=== PATIENT | male | born 1985 | race Hispanic/Latino ===

== ENCOUNTER 2016-09-15 08:18 | Emergency (ER) | payer OTHER ==
[2016-09-15 08:20] VITALS: BP 143/80; PULSE 89; TEMP 98; O2SAT 98
[2016-09-15 08:21] VITALS: BMI 25.0
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
== END 2016-09-15 09:40 | disposition home or self-care (01) ==
LOC: H.ER 08:18
DX: S41.011A Laceration without foreign body of right shoulder, initial encounter (principal); W20.8XXA Other cause of strike by thrown, projected or falling object, initial encounter; Y99.0 Civilian activity done for income or pay

== ENCOUNTER 2017-05-01 17:53 | Emergency (ER) | payer OTHER ==
[2017-05-01 18:10] VITALS: BP 132/84; PULSE 90; RESP 16; TEMP 98; O2SAT 99
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
== END 2017-05-01 18:58 | disposition home or self-care (01) ==
LOC: MERGE 17:53 → H.ER 17:53
DX: S60.511A Abrasion of right hand, initial encounter (principal); V49.9XXA Car occupant (driver) (passenger) injured in unspecified traffic accident, initial encounter